=== PATIENT | male | born 1985 | race Caucasian/White ===

== ENCOUNTER 2016-12-12 19:47 | Emergency (ER) | payer OTHER ==
[2016-12-12] MEDS ORDERED: Ibuprofen 800 MG Tab PO ONE (20:24)
[2016-12-12] MEDS ORDERED: Penicillin V Potassium 500 MG Tab PO ONE (20:24)
--- NOTE | 2016-12-12 20:30 | EDM.PDOC ---
ED HPI GENERAL MEDICAL PROBLEM - General Chief Complaint: ENT Problem Stated Complaint: STREP THROAT Time Seen by Provider: 12/12/16 19:54 Source of Information: Reports: Patient History Limitations: Reports: No Limitations - History of Present Illness INITIAL COMMENTS - FREE TEXT/NARRATIVE: HISTORY AND PHYSICAL: History of present illness: [31-year-old male with no significant past history now complaining of sore throat it hurts to swallow. He thinks he might have strep. No headache or stiff neck. No fevers chills sweats or shaking chills. Patient otherwise feels well] Review of systems: As per history of present illness and below otherwise all systems reviewed and negative. Past medical history: As per history of present illness and as reviewed below otherwise noncontributory. Surgical history: As per history of present illness and as reviewed below otherwise noncontributory. Social history: No reported history of drug or alcohol abuse. Family history: As per history of present illness and as reviewed below otherwise noncontributory. Physical exam: Well-appearing patient noted distress no stridor normal voice. Oropharynx with bilateral white exudates and erythema no mass or midline shift no asymmetry no stridor. Remainder of exam is benign HEENT: Atraumatic, normocephalic, pupils reactive, negative for conjunctival pallor or scleral icterus, mucous membranes moist, throat clear, neck supple, nontender, trachea midline. Lungs: Clear to auscultation, breath sounds equal bilaterally, chest nontender. Heart: S1S2, regular, negative for clicks, rubs, or JVD. Abdomen: Soft, nondistended, nontender. Negative for masses or hepatosplenomegaly. Negative for costovertebral tenderness. Pelvis: Stable nontender. Genitourinary: Deferred. Rectal: Deferred. Extremities: Atraumatic, negative for cords or calf pain. Neurovascular unremarkable. Neuro: Awake, alert, oriented. Exam nonfocal. Diagnostics: [] Therapeutics: [Penicillin by mouth [place] ibuprofen given. Impression: [Pharyngitis] Plan: [Signs and symptoms consistent with pharyngitis likely strep. Treatment with penicillin initiated and ibuprofen given. Patient has no evidence of peritonsillar abscess. He is not systemically ill. His is aware to finish penicillin as prescribed and follow-up with PCP in 2 days and return immediately for new severe or worsening symptoms. No further workup or treatment indicated at this time patient agrees with outpatient follow-up and strict return precautions given] Definitive disposition and diagnosis as appropriate pending reevaluation and review of above. Throat Pain Score (Numeric/FACES): 2 - Related Data Allergies Allergy/AdvReac Type Severity Reaction Status Date / Time No Known Allergies Allergy Verified 12/12/16 20:03 Home Meds: Home Meds Penicillin V Potassium [IJP: Penicillin V Potassium] 500 mg PO .EVERY 6 HOURS # 40 tab 12/12/16 [Rx] Past Medical History - Past Health History Medical/Surgical History: Denies Medical/Surgical History Endocrine/Metabolic History: Reports: Diabetes, Type I - Infectious Disease History Infectious Disease History: Reports: Chicken Pox Other Infectious Disease History: "mono" Social & Family History - Family History Family Medical History: Noncontributory - Tobacco Use Smoking Status *Q: Never Smoker Second Hand Smoke Exposure: No - Caffeine Use Caffeine Use: Reports: Coffee, Energy Drinks, Soda Caffeine Use Comment: 1 drink each/day - Alcohol Use Days Per Week of Alcohol Use: 3 Number of Drinks Per Day: 3 Total Drinks Per Week: 9 - Recreational Drug Use Recreational Drug Use: No ED ROS GENERAL - Review of Systems Review Of Systems: See Below (History of present illness) ED EXAM, GENERAL - Physical Exam Exam: See Below (History of present illness) Exam Limited By: No Limitations Course - Vital Signs Last Recorded V/S: Last Vital Signs Temp 37.1 C 12/12/16 19:59 Pulse 72 12/12/16 19:59 Resp 18 12/12/16 19:59 BP 123/79 12/12/16 19:59 Pulse Ox 98 12/12/16 19:59 - Orders/Labs/Meds Orders: Active Orders 24 hr Category Date Time Status Ibuprofen [Motrin] Med 12/12/16 20:24 Once 800 mg PO ONETIME ONE Meds: Medications Discontinued Medications Generic Name Dose Route Start Last Admin Trade Name Freq PRN Reason Stop Dose Admin Penicillin V Potassium 1,000 mg 12/12/16 20:24 Veetids PO 12/12/16 20:25 ONETIME ONE Departure - Departure Time of Disposition: 20:27 Disposition: Home, Self-Care 01 Condition: Good Clinical Impression: Pharyngitis - Discharge Information Referrals: PCP,None [Primary Care Provider] - Forms: ED Department Discharge Additional Instructions: You have pharyngitis which means infection in the back your throat. This is most likely caused by strep which is a bacteria that requires an anabolic to cure it. We have given you penicillin prescription. You been treated fully for this evening but fill and initiate your prescription in the morning. Hip pain take Tylenol every 4 hours and Motrin every 6 hours as directed. Rest and drink plenty of fluids. Follow-up with your doctor in 2 days and return immediately for new severe or worsening symptoms specifically for severe headache especially stiff neck difficulty speaking changes in her voice difficulty breathing or inability to swallow. - My Orders Last 24 Hours: My Active Orders 12/12/16 20:24 Ibuprofen [Motrin] 800 mg PO ONETIME ONE - Assessment/Plan Last 24 Hours: My Active Orders 12/12/16 20:24 Ibuprofen [Motrin] 800 mg PO ONETIME ONE
[2016-12-12 20:49] VITALS: BP 121/77
== END 2016-12-12 20:49 | disposition home or self-care (01) ==
LOC: MW.ED 19:47
DX: J02.9 Acute pharyngitis, unspecified (principal); E10.9 Type 1 diabetes mellitus without complications
CPT/HCPCS: 99282; A9270; 99283